=== PATIENT | male | born 1985 | race Caucasian/White ===

== ENCOUNTER 2020-09-11 21:06 | Emergency (ER) | payer SELFPAY ==
--- NOTE | 2020-09-11 22:54 | ER Document Report ---
ED Medical Screen (RME) - General Chief Complaint: Shortness Of Breath Stated Complaint: CHEST TIGHTNESS/CHILLS/SHORTNESS OF BREATH Time Seen by Provider: 09/11/20 22:48 Mode of Arrival: Ambulatory Information source: Patient Notes: HPI; 35-year-old male presents emergency room complaining of chest pain off and on for the past 2 days. States "I feel like an elephant sitting on my chest". Complains of subjective fever. No nausea, no vomiting, states he has had multiple episodes of diarrhea for the past 2 days. Denies any recent travel. No COVID-19 exposure. PE: Alert and oriented x3. Lungs: Clear to auscultation without rales, rhonchi, wheezes. Heart: Regular rate and rhythm without murmurs, rubs, gallops. Patient did not have an EKG on arrival as he did not present with a complaint of chest pain. Did not mention his chest pain until he was being triaged by provider and nurse. I have greeted and performed a rapid initial assessment of this patient. A comprehensive ED assessment and evaluation of the patient, analysis of test results and completion of the medical decision making process will be conducted by additional ED providers. I have specifically instructed the patient or family members with the patient to immediately return to any nursing staff should anything change in the patient's condition or with their chief complaint. TRAVEL OUTSIDE OF THE [place] IN LAST 30 DAYS: No - Related Data Allergies/Adverse Reactions: Penicillins Allergy (Verified 09/11/20 22:48) Past Medical History - Social History Frequency of alcohol use: None Drug Abuse: Bath salts Physical Exam - Vital signs Vitals: Temp Pulse Resp BP Pulse Ox 98.7 F 79 17 124/52 L 96 09/11/20 21:12 09/11/20 21:12 09/11/20 21:12 09/11/20 21:12 09/11/20 21:12 Course - Vital Signs Vital signs: Temp Pulse Resp BP Pulse Ox 98.7 F 79 17 124/52 L 96 09/11/20 21:12 09/11/20 21:12 09/11/20 21:12 09/11/20 21:12 09/11/20 21:12
[2020-09-12 00:19] LABS: ABSOLUTE BASOPHILS # (AUTO) 0.1 10^3/uL (0.0-0.2); ABSOLUTE EOSINOPHILS # (AUTO) 0.3 10^3/uL (0.0-0.6); ABSOLUTE LYMPHOCYTES (AUTO) 1.7 10^3/uL (0.5-4.7); ABSOLUTE MONOCYTES (AUTO) 1.1 10^3/uL (0.1-1.4); ABSOLUTE NEUT (AUTO) 8.4 10^3/uL (1.7-8.2); BASOPHILS % (AUTO) 0.5 % (0-2); HEMATOCRIT 41.7 % (37.9-51.0); HEMOGLOBIN 14.4 g/dL (13.5-17.0); LYMPHOCYTES % (AUTO) 14.6 % (13-45); MEAN CORPUSCULAR HEMOGLOBIN 31.4 pg (27.0-33.4); MEAN CORPUSCULAR HGB CONC 34.5 g/dL (32.0-36.0); MEAN CORPUSCULAR VOLUME 91 fl (80-97); MONOCYTES % (AUTO) 9.2 % (3-13); PLATELET COUNT 302 10^3/uL (150-450); RED BLOOD COUNT 4.59 10^6/uL (4.35-5.55); RED CELL DISTRIBUTION WIDTH 13.5 % (11.5-14.0); SEGMENTED NEUTROPHILS % (AUTO) 72.7 % (42-78); TOTAL CELLS COUNTED % (AUTO) 100 %; WHITE BLOOD COUNT 11.6 10^3/uL (4.0-10.5)
[2020-09-12 00:28] LABS: ALBUMIN 4.5 g/dL (3.5-5.0); ALKALINE PHOSPHATASE 99 U/L (38-126); ANION GAP 8 (5-19); ASPARTATE AMINO TRANSFERASE 17 U/L (17-59); BILIRUBIN,DIRECT 0.4 mg/dL (0.0-0.4); BILIRUBIN,TOTAL 0.4 mg/dL (0.2-1.3); BLOOD UREA NITROGEN 14 mg/dL (7-20); CALCIUM 9.5 mg/dL (8.4-10.2); CARBON DIOXIDE 31 mmol/L (22-30); CHLORIDE 99 mmol/L (98-107); GLUCOSE 98 mg/dL (75-110); POTASSIUM 4.4 mmol/L (3.6-5.0); TOTAL PROTEIN 7.2 g/dL (6.3-8.2)
--- NOTE | 2020-09-12 01:18 | RADIOLOGY REPORT (SQ) ---
EXAM DESCRIPTION: X-ray, single view of the chest CLINICAL HISTORY: 35 years Male, chest pain COMPARISON: None. FINDINGS: Lungs: Lungs are clear. No pneumonia or edema. No pneumothorax or pleural effusion. Mediastinum: Cardiac and mediastinal silhouette are normal. Bones: Osseous structures are normal. IMPRESSION: Unremarkable single view of the chest. No acute process.
--- NOTE | 2020-09-12 02:40 | ER Document Report ---
ED Respiratory Problem - General Chief Complaint: Shortness Of Breath Stated Complaint: CHEST TIGHTNESS/CHILLS/SHORTNESS OF BREATH Time Seen by Provider: 09/11/20 22:48 Mode of Arrival: Ambulatory TRAVEL OUTSIDE OF THE [place] IN LAST 30 DAYS: No - HPI Notes: Patient is a 35-year-old male who presents with about 1 week of nausea, diarrhea, fatigue, episodic chest discomfort, cough. Patient states that him and his roommate were at home. They both developed chest pain at the same time and decided to come get tested for Covid. Patient is denying any chest pain at this time. He denies any cardiac history. Patient is a smoker. He denies being exposed to anyone with positive COVID-19. Patient does not have any risk factors for PE or DVT. - Related Data Allergies/Adverse Reactions: Penicillins Allergy (Verified 09/11/20 22:48) Past Medical History - General Information source: Patient - Social History Smoking Status: Current Every Day Smoker Frequency of alcohol use: None Drug Abuse: Bath salts Family History: Reviewed & Not Pertinent Review of Systems - Review of Systems Notes: CONSTITUTIONAL: No fever, fatigue or weight loss. SKIN: No rash. HENT: No congestion, ear pain, or sore throat. EYES: No recent vision problems or eye pain. ENDOCRINE: No thyroid problems. No polyuria or polydipsia. CARDIOVASCULAR: Positive for chest pain RESPIRATORY: Positive for cough GASTROINTESTINAL: No abdominal pain, nausea, vomiting, bloody stools or diarrhea. GENITOURINARY: No dysuria. MUSCULOSKELETAL: No joint pain or swelling. LYMPHATIC: No swollen glands. NEUROLOGIC: No seizures. No headache, focal weakness or sensory changes. HEMATOLOGIC: No unusual bruising or bleeding. PSYCHIATRIC: No depression or anxiety. Physical Exam - Vital signs Vitals: Temp Pulse Resp BP Pulse Ox 98.7 F 79 17 124/52 L 96 09/11/20 21:12 09/11/20 21:12 09/11/20 21:12 09/11/20 21:12 09/11/20 21:12 - General General appearance: Appears well Notes: VITAL SIGNS: Within normal limits. GENERAL: No acute distress, non-toxic appearance. HEAD: Normal with no signs of head trauma. EYES: PERRLA, EOMI, conjunctiva normal, no discharge. EARS: Hearing grossly intact. NOSE: Normal. NECK: Normal range of motion, no tenderness, supple, no lymphadenopathy, No adenopathy, no JVD. CHEST: Clear breath sounds bilaterally. No wheezes, rales, or rhonchi. CARDIAC: Regular rate and rhythm. S1 and S2, without murmurs, gallops, or rubs. VASCULAR: No Edema. ABDOMEN: Normal and soft with no tenderness, no masses or pulsatile masses. GASTROINTESTINAL: Bowel sounds normal GENITOURINARY: Normal, No tenderness MUSCULOSKELETAL: Good range of motion of all major joints. Extremities without clubbing, cyanosis or edema. NEUROLOGICAL: Alert and oriented x 3. No focal sensory or strength deficits. Speech normal. Follows commands appropriately. PSYCHIATRIC: Normal Affect, judgement and mood. SKIN: Normal appearance with no rashes or lesions. Course - Re-evaluation Re-evalutation: 09/14/20 02:26 Patient appears well on exam. He is in no acute distress. Patient's work-up was reviewed and was unremarkable. Patient just states him and his friend were very worried and both came to get tested for Covid. I have low suspicion for PE as patient does not have any risk factors. Patient was instructed that he needs to self isolate until he is called with a negative result. He is to return for any worsening symptoms, shortness of breath, any concerning symptoms. - Vital Signs Vital signs: Temp Pulse Resp BP Pulse Ox 98.3 F 78 18 124/73 97 09/12/20 03:01 09/12/20 03:01 09/12/20 03:01 09/12/20 03:01 09/12/20 03:01 - Laboratory Result Diagrams: 09/12/20 00:04 09/12/20 00:04 Laboratory results interpreted by me: 09/12/20 09/12/20 00:04 00:04 WBC 11.6 H Absolute Neuts (auto) 8.4 H Carbon Dioxide 31 H - EKG Interpretation by [facility] EKG shows normal: Sinus rhythm Rate: Normal Rhythm: NSR When compared to previous EKG there are: Previous EKG unavailable Discharge - Discharge Clinical Impression: Cough Condition: Stable Disposition: HOME, SELF-CARE Instructions: COVID-19 Guidance for Persons Under Investigation Additional Instructions: Please follow-up with your family doctor. Please return to the ER for any worsening shortness of breath, fevers, any concerning symptoms.
[2020-09-12 03:01] VITALS: BP 124/73
--- NOTE | 2020-09-12 08:59 | EKG REPORT ---
SEVERITY:- NORMAL ECG - SINUS RHYTHM : Confirmed by: Madelyn Bello 12-Sep-2020 08:58:17
== END 2020-09-12 03:06 | disposition home or self-care (01) ==
LOC: ER 21:06
DX: R11.0 Nausea (principal); R19.7 Diarrhea, unspecified; R53.83 Other fatigue; R07.89 Other chest pain; R05 Cough; F17.200 Nicotine dependence, unspecified, uncomplicated; F19.10 Other psychoactive substance abuse, uncomplicated; Z88.0 Allergy status to penicillin; Z20.828 Contact with and (suspected) exposure to other viral communicable diseases
CPT/HCPCS: 93005; 99285; 36415; 87070; 85025; 87635; 80053; 84484; 71045; 93010; C9803